=== PATIENT | female | born 1960 | race Two or more races ===

== ENCOUNTER 2023-04-03 22:38 | Emergency (ER) | payer OTHER ==
[~2023-04-03] VITALS: Ht 162.6 cm; Wt 103.4 kg
[2023-04-03] MEDS ORDERED: COZAAR50 MG PO (23:15)
[2023-04-03] MEDS ORDERED: SYNJARDY 12.5-1 EACH (23:15)
[2023-04-03] MEDS ORDERED: FLUTICASONE-SA1 EAC4 (23:16)
[2023-04-04] MEDS ORDERED: ZYNCOF 20-400120 ML PO (02:57)
[2023-04-04] MEDS ORDERED: ZYRTEC10 M3 PO (02:57)
== END 2023-04-04 03:18 ==
LOC: ER 22:38
PROVIDERS: Emergency Medicine
DX: J06.9 Acute upper respiratory infection, unspecified (principal); E11.9 Type 2 diabetes mellitus without complications; Z79.84 Long term (current) use of oral hypoglycemic drugs; I10 Essential (primary) hypertension; Z91.013 Allergy to seafood; Z20.822 Contact with and (suspected) exposure to COVID-19